=== PATIENT | male | born 2000 | race American Indian/Alaskan Native ===

== ENCOUNTER 2025-01-06 09:00 | Emergency (ER) | payer MEDICAID, OTHER ==
[~2025-01-06] VITALS: Ht 177.8 cm; Wt 91.6 kg
--- NOTE | 2025-01-06 10:56 | ED.PDOC ---
HPI (NEURO) HPI Comments 24y M who presents to the ED for chief complaint of dizziness. Pt states he has been having dizziness since earlier this AM. Pt states he has noticed generalized body pain which also started today but otherwise denies any associated symptoms. Pt states he otherwise has history of seizure disorder and states he has been out of his seizure medications for the past 4 days but states he was otherwise complaint with his medications prior to running out of his medications. Pt denies any recent seizure like activity and states last seizure was many months ago. Pt otherwise is alert and oriented x 4 and able to answer all questions. Pt otherwise denies any other symptoms at this time. = Chief Complaint: Dizziness Time Seen by MD: 10:52 Reviewed Notes: Medications, Allergies Information Source: Patient Mode of Arrival: Ambulatory Brought in by: self Severity: Moderate Dizziness/Weakness Severity: Unable to do activities Headache Severity: None Timing: Hours Duration: Since onset Prehospital treatment: None Onset: At rest Circumstances: Spontaneous Symptoms: Other (dizziness) History of: Seizure Disorder Modifying factors: Nothing Associated Signs and Symptoms: Other (dizziness) Past Medical History PAST MEDICAL HISTORY: Seizures Surgical History: Denies all surgeries Family History Family History: Family hx of DM Social History Smoker: Non-Smoker Alcohol: Occasionally Drugs: Denies Drug Use Lives In: Home Constitutional: denies: chills, diaphoresis, fatigue, fever, malaise, sweats, weakness, others EENTM: denies: blurred vision, double vision, ear bleeding, ear discharge, ear drainage, ear pain, ear ringing, eye pain, eye redness, hearing loss, mouth pain, mouth swelling, nasal discharge, nose bleeding, nose congestion, nose pain, photophobia, tearing, throat pain, throat swelling, voice changes, others Respiratory: denies: cough, hemoptysis, orthopnea, SOB at rest, shortness of breath, SOB with excertion, stridor, wheezing, others Cardiovascular: denies: chest pain, dizzy spells, diaphoresis, Dyspnea on exertion, edema, irregular heart beat, left arm pain, lightheadedness, palpitations, PND, syncope, others Gastrointestinal: denies: abdomen distended, abdominal pain, blood streaked bowels, constipated, diarrhea, dysphagia, difficulty swallowing, hematemesis, melena, nausea, poor appetite, poor fluid intake, rectal bleeding, rectal pain, vomiting, others Genitourinary: denies: burning, dysuria, flank pain, frequency, hematuria, incontinence, penile discharge, penile sore, pain, testicle pain, testicle swelling, urgency, others Neurological: reports: dizziness; denies: fainting, headache, left sided numbness, left sided weakness, numbness, paresthesia, pre-existing deficit, right sided numbness, right sided weakness, seizure, speech problems, tingling, tremors, weakness, others Musculoskeletal: denies: back pain, gout, joint pain, joint swelling, muscle pain, muscle stiffness, neck pain, others Integumetry: denies: bruises, change in color, change in hair/nails, dryness, laceration, lesions, lumps, rash, wounds, others Allergic/Immunocompromised: denies: Difficulty Healing, Frequent Infections, Hives, Itching, others Hematologic/Lymphatic: denies: anemia, blood clots, easy bleeding, easy bruising, swollen glands, others Endocrine: denies: excessive hunger, excessive sweating, excessive thirst, excessive urination, flushing, intolerance to cold, intolerance to heat, unexplained weight gain, unexplained weight loss, others Psychiatric: denies: anxiety, bipolar disorder, depression, hopeless, panic disorder, schizophrenia, sleepless, suicidal, others All Other Systems: Reviewed and Negative Physical Exam General Appearance: Mild Distress HEENT: Normal ENT Inspection, Pharynx Normal, TMs Normal Neck: Full Range of Motion, Non-Tender, Normal, Normal Inspection Respiratory: Chest Non-Tender, Lungs Clear, No Accessory Muscle Use, No Respiratory Distress, Normal Breath Sounds Cardiovascular: No Edema, No JVD, No Murmur, No Gallop, Normal Peripheral Pulses, Regular Rate/Rhythm Breast Exam: Deferred Gastrointestinal: No Organomegaly, Non Tender, No Pulsatile Mass, Normal Bowel Sounds, Soft Genitalia: Deferred Pelvic: Deferred Rectal: Deferred Extremities: No calf tenderness, Normal capillary refill, Normal inspection, Normal range of motion, Non-tender, No pedal edema Musculoskeletal : Apperance: Normal Neurologic: Alert, supervisor purification II-XII nml as Tested, No Motor Deficits, Normal Affect, Normal Mood, No Sensory Deficits Cerebellar Function: Normal Reflexes: Normal Skin: Dry, Normal Color, Warm Lymphatic: No Adenopathy EKG EKG : Pulse Rate (adult): 62 [place]: RAD Cardiac Rhythm: NSR Block: None Hypertrophy: None ST: Normal Was a procedure done? Was a procedure done?: No Differential Diagnosis (SZ) Seizure: Psychogenic Seizure, Anticonvulsant Withdrawl, Closed Head Injury, Hypoxemia, Idiopathic, Encephalopathy General Weakness: Dehydration, Electrolyte imbalance X-Ray, Labs, Meds, VS Vital Signs Date Time Temp Pulse Resp B/P (MAP) Pulse Ox O2 Delivery O2 Flow Rate FiO2 01/06/25 11:06 98.9 58 16 144/96 (112) 99 98.9 01/06/25 11:01 144/96 01/06/25 10:56 62 01/06/25 09:46 98.7 70 18 154/107 (123) 98 98.7 01/06/25 09:44 62 Lab Test 01/06/25 10:55 01/06/25 10:41 Range/Units Urine Color Colorless Yellow Urine Clarity Clear Clear Urine pH 6.5 5.0-9.0 Urine Specific [place] 1.003 1.001-1.035 Urine Protein Negative Negative Urine Ketones Negative Negative Urine Blood Negative Negative /uL Urine Nitrite Negative Negative Urine Bilirubin Negative Negative Urine Urobilinogen Normal Negative mg/dL Urine Leukocyte Esterase Negative Negative /uL Urine RBC None seen 0 - 3 /hpf Urine Microscopic WBC < 1 0-3 /HPF Urine Squamous Epithelial Cells None seen <5 /hpf Urine Bacteria Few H None Seen /hpf Urine Glucose Normal Normal mg/dL White Blood Count 5.0 4.4-10.8 10^3/uL Red Blood Count 5.31 4.5-5.90 10^6/uL Hemoglobin 16.6 13.5-17.5 g/dL Hematocrit 47.9 41.0-53.0 % Mean Corpuscular Volume 90.1 80.0-100.0 fL Mean Corpuscular Hemoglobin 31.2 28.0-32.0 pg Mean Corpuscular Hemoglobin Concent 34.6 32.0-36.0 g/dL Red Cell Distribution Width 13.8 11.8-14.3 % Platelet Count 188 140-450 10^3/uL Mean Platelet Volume 6.6 L 6.9-10.8 fL Neutrophils (%) (Auto) 74.2 37.0-80.0 % Lymphocytes (%) (Auto) 19.9 10.0-50.0 % Monocytes (%) (Auto) 5.3 0.0-12.0 % Eosinophils (%) (Auto) 0.4 0.0-7.0 % Basophils (%) (Auto) 0.2 0.0-2.0 % Neutrophils # (Auto) 3.7 1.6-8.6 10 ^3/uL Lymphocytes # (Auto) 1.0 0.4-5.4 10 ^3/uL Monocytes # (Auto) 0.3 0-1.3 10 ^3/uL Eosinophils # (Auto) 0 0-0.8 10 ^3/uL Basophils # (Auto) 0 0-0.2 10 ^3/uL Nucleated Red Blood Cells 0.0 % Sodium Level 142 136-145 mmol/L Potassium Level 4.3 3.5-5.1 mmol/L Chloride Level 107 98-107 mmol/L Carbon Dioxide Level 28 20-31 mmol/L Anion Gap 7 5-15 Blood Urea Nitrogen 7 L 9-23 mg/dL Creatinine 1.35 H 0.700-1.30 mg/dL Glomerular Filtration Rate Calc 74 >90 mL/min BUN/Creatinine Ratio 5.2 L 10.0-20.0 Serum Glucose 87 74-106 mg/dL Calcium Level 9.8 8.7-10.4 mg/dL Current Medications Medications (Trade) Dose Ordered Sig/Alek Route Start Time Stop Time Status Last Admin Meclizine HCl (Antivert Tablet) 25 mg ONCE ONCE PO 01/06/25 10:45 01/06/25 10:46 DC 01/06/25 11:05 The urine test is negative The patient's chemistry panel is showing a creatinine of 1.35 The rest of the chemistry panel is within normal limits The patient's CBC is within normal limits The patient was given meclizine 25 mg p.o. The CAT scan of the head shows: No sign of any abnormalities The patient will be discharged The patient also states that he ran out of his Keppra We did refill the patient's Keybrokerra Images Reviewed?: Images reviewed and evaluated by me Time of 1ST Reevaluation: 11:30 Reevaluation 1ST: Unchanged Patient Education/Counseling: Diagnosis, Treatment, Prognosis, Need For Follow Up Family Education/Counseling: No Family Present Departure 1 Departure Time of Disposition: 11:46 Impression: Primary Impression: Vertigo Disposition: 01 HOME / SELF CARE / HOMELESS Condition: Fair Discharged With: Self Critical Care Note Critical Care Time?: No Stability Stability form required: No Heart Score Heart Score: Heart Score Response (Comments) Value History N/A 0 EKG N/A 0 Age N/A 0 Risk Factors N/A 0 Troponin N/A 0 Total 0 I personally scribed for PRIYA SADLER MD ([email or web address]) on 01/06/25 at 10:56. Electronically submitted by Simona Purdy ([email or web address]). PRIYA SADLER MD Jan 06, 2025 10:56
[2025-01-06 11:00] LABS: Chloride 107 mmol/L (98-107); Hematocrit 47.9 % (41.0-53.0); Hemoglobin 16.6 g/dL (13.5-17.5); Mean Corpuscular Hemoglobin 31.2 pg (28.0-32.0); Mean Corpuscular Volume 90.1 fL (80.0-100.0); Nucleated Red Blood Cells % 0.0 %; Potassium 4.3 mmol/L (3.5-5.1); Sodium 142 mmol/L (136-145)
[2025-01-06 11:01] LABS: Anion Gap 7 (5-15); Calcium 9.8 mg/dL (8.7-10.4); Carbon Dioxide 28 mmol/L (20-31)
[2025-01-06] MEDS: MECLIZINE HCL 25 MG TAB PO ONE (11:05)
[2025-01-06 11:06] LABS: BUN/Creatinine Ratio 5.2 (10.0-20.0); Glucose 87 mg/dL (74-106)
--- NOTE | 2025-01-06 11:11 | DVH ---
EXAM: CT HEAD WITHOUT CONTRAST INDICATION: dizziness TECHNIQUE: CT of the head without intravenous contrast. Radiation Dose : 1. Head: CT Dose: CTDI volume is 41 mGy. Dose-length product is 856 mGy*cm The dose indicators for CT are the volume Computed Tomography (CT) Dose Index (CTDIvol) and the Dose Length Product (DLP), and are measured in units of mGy and mGy-cm, respectively. These indicators are not patient dose, but values generated from the CT scanner acquisition factors. The report includes radiation exposure data for exposures received during this examination. COMPARISON: None FINDINGS: There is no evidence of acute intracranial hemorrhage, extra-axial collection, mass effect, midline s hift, herniation or hydrocephalus. The ventricles, sulci and cisterns are age appropriate. The cm-white differentiation is intact. The visualized paranasal sinuses and mastoid air cells are clear. The surrounding soft tissues and osseous structures are unremarkable. IMPRESSION: No acute intracranial abnormality. Radiation optimization: All CT scans at this facility use at least one of these dose optimization kiesha hniques: automated exposure control mA and/or kV adjustment per patient size (includes targeted exam s where dose is matched to clinical indication) or iterative reconstruction.
[2025-01-06 11:15] LABS: Blood Urea Nitrogen 7 mg/dL (9-23)
[2025-01-06 11:20] LABS: Urine Protein, UAD Negative (Negative)
[2025-01-06] MEDS ORDERED: KEP500T PO (11:43)
[2025-01-06] MEDS ORDERED: MECL12.586 PO (11:43)
[2025-01-06 11:59] VITALS: BP 123/92; PULSE 62; RESP 18; TEMP 98.2; O2SAT 99
--- NOTE | 2025-01-06 19:26 | ECG ---
[facility] Test Date: 2025-01-06 Test Time: 09:44:51 Pat Name: TESSY MELISSA Department: ER Room: Gender: M [employer]: : 2000 Requested By: EMERGENCY EMERGENCY Order Number: [id number] Reading MD: Archie Villanueva Measurements Intervals [place] Rate: 62 P: 84 OK: 132 QRS: 98 QRSD: 91 T: 53 QT: 411 QTc: 418 Interpretive Statements Sinus rhythm Borderline right axis deviation ST elev, probable normal early repol pattern Electronically Signed On 01-08-2025 10:22:11 PDT by Archie Villanueva Please click the below link to view image of tracing.
== END 2025-01-06 12:02 | disposition home or self-care (01) ==
LOC: ER 09:00
DX: R42 Dizziness and giddiness (principal)
CPT/HCPCS: 36415; 70450; 80048; 81001; 82947; 85025; 93005; 99284; J8597; 82962

== ENCOUNTER 2025-02-25 09:15 | Emergency (ER) | payer MEDICAID, OTHER ==
[~2025-02-25] VITALS: Ht 175.3 cm; Wt 82.0 kg
[~2025-02-25 09:15] MED LIST: KEP500T PO; MECL12.586 PO
[2025-02-25] MEDS ORDERED: AMOX875T3 PO (09:42)
[2025-02-25] MEDS ORDERED: PRED20TA2 PO (09:42)
--- NOTE | 2025-02-25 09:43 | ED.PDOC ---
Eye-HPI HPI Comments A 24 YEAR OLD MALE PRESENTS TO THE ED WITH COMPLAINT OF RIGHT EAR PAIN. PATIENT STATES HE HAS BEEN EXPERIENCING RIGHT EAR PAIN THAT STARTED YESTERDAY. PATIENT DENIES FEVER, CHILLS, SHORTNESS OF BREATH, CHEST PAIN, ABDOMINAL PAIN, NAUSEA, VOMITING, HEADACHE, OR OTHER COMPLAINTS. NO OTHER SYMPTOMS OR MODIFYING FACTORS AT THIS TIME. PATIENT IS ALERT, ORIENTED X 4, AND HAS STEADY GAIT. Chief Complaint: Earache Time Seen by MD: 09:21 Reviewed Notes: Nurses Notes, Medications, Allergies Allergies: Coded Allergies: NO KNOWN ALLERGIES (Unverified , 01/06/25) Home Meds Active Scripts Prednisone (Prednisone) 20 Mg Tab, 60 MG PO DAILY, #15 TAB Prov:DEVONTE BARROS 02/25/25 Amoxicillin Trihydrate (Amoxicillin) 875 Mg Tab, 1 TAB PO BID, #20 TAB Prov:DEVONTE BARROS 02/25/25 Levetiracetam (KEPPRA TABLET) 500 Mg Tb, 500 MG PO BID for 30 Days, #60 TAB Prov:PRIYA SADLER MD 01/06/25 Meclizine Hcl (Meclizine Hcl) 12.5 Mg Tab, 1 TAB PO TID, #30 TAB Prov:PRIYA SADLER MD 01/06/25 Information Source: Patient Mode of Arrival: Ambulatory Timing: Days Duration: Since onset Prehospital treatment: None Quality: Pain, Red Lids: Normal Conjunctiva: Normal Cornea: Normal EOM: Normal Fundus: Normal Slit lamp exam: Normal Mouth: Normal ENT Ear Exam: Normal, Red, Bulging, Dull, Normal Nose: Normal Sinuses: Normal Oropharynx: Normal Onset: Spontaneous Throat Exposed to: None History of: None Last Tetanus: Unknown Modifying factors: Nothing Associated signs and symptoms: Ear Pain Past Medical History PAST MEDICAL HISTORY: Seizures Surgical History: Denies all surgeries Family History Family History: Reviewed,noncontributory to illness, Family hx of DM Social History Smoker: Non-Smoker Alcohol: Occasionally Drugs: Denies Drug Use Lives In: Home Constitutional: denies: chills, diaphoresis, fatigue, fever, malaise, sweats, weakness, others EENTM: reports: ear pain (RIGHT EAR PAIN), ear ringing; denies: blurred vision, double vision, ear bleeding, ear discharge, ear drainage, eye pain, eye redness, hearing loss, mouth pain, mouth swelling, nasal discharge, nose bleeding, nose congestion, nose pain, photophobia, tearing, throat pain, throat swelling, voice changes, others Respiratory: denies: cough, hemoptysis, orthopnea, SOB at rest, shortness of breath, SOB with excertion, stridor, wheezing, others Cardiovascular: denies: chest pain, dizzy spells, diaphoresis, Dyspnea on exertion, edema, irregular heart beat, left arm pain, lightheadedness, palpitations, PND, syncope, others Gastrointestinal: denies: abdomen distended, abdominal pain, blood streaked bowels, constipated, diarrhea, dysphagia, difficulty swallowing, hematemesis, melena, nausea, poor appetite, poor fluid intake, rectal bleeding, rectal pain, vomiting, others Genitourinary: denies: burning, dysuria, flank pain, frequency, hematuria, incontinence, penile discharge, penile sore, pain, testicle pain, testicle swelling, urgency, others Neurological: denies: dizziness, fainting, headache, left sided numbness, left sided weakness, numbness, paresthesia, pre-existing deficit, right sided numbness, right sided weakness, seizure, speech problems, tingling, tremors, weakness, others Musculoskeletal: denies: back pain, gout, joint pain, joint swelling, muscle pain, muscle stiffness, neck pain, others Integumetry: denies: bruises, change in color, change in hair/nails, dryness, laceration, lesions, lumps, rash, wounds, others Allergic/Immunocompromised: denies: Difficulty Healing, Frequent Infections, Hives, Itching, others Hematologic/Lymphatic: denies: anemia, blood clots, easy bleeding, easy bruising, swollen glands, others Endocrine: denies: excessive hunger, excessive sweating, excessive thirst, excessive urination, flushing, intolerance to cold, intolerance to heat, unexplained weight gain, unexplained weight loss, others Psychiatric: denies: anxiety, bipolar disorder, depression, hopeless, panic disorder, schizophrenia, sleepless, suicidal, others All Other Systems: Reviewed and Negative Physical Exam General Appearance: No Apparent Distress, Normal HEENT: PERRL/EOMI, Pharynx Normal, TM Abnormal (R) (ERYTHEMA AND DULL WITH EFFUSION OF RIGHT TM, NO BLEEDING AND BLOOD CLOTS. ) Neck: Full Range of Motion, Non-Tender, Normal, Normal Inspection Respiratory: Chest Non-Tender, Lungs Clear, No Accessory Muscle Use, No Respiratory Distress, Normal Breath Sounds Cardiovascular: No Edema, No JVD, No Murmur, No Gallop, Normal Peripheral Pulses, Regular Rate/Rhythm Breast Exam: Deferred Gastrointestinal: No Organomegaly, Non Tender, No Pulsatile Mass, Normal Bowel Sounds, Soft Genitalia: Deferred Pelvic: Deferred Rectal: Deferred Extremities: No calf tenderness, Normal capillary refill, Normal inspection, Normal range of motion, Non-tender, No pedal edema Musculoskeletal : Apperance: Normal Neurologic: Alert, vacuum system tester II-XII nml as Tested, No Motor Deficits, Normal Affect, Normal Mood, No Sensory Deficits Cerebellar Function: Normal Reflexes: Normal Skin: Dry, Normal Color, Warm Peripheral Pulses: 2+ carotid (R), 2+ carotid (L) Lymphatic: No Adenopathy Was a procedure done? Was a procedure done?: No EENT DIFF Eye: N/A Ear: Cerumen Impaction, Otitis Externa, Otitis Media, Dental, Pharyngitis, Sinusitis Nose: N/A Mouth: N/A Sore Throat: N/A X-Ray, Labs, Meds, VS Vital Signs Date Time Temp Pulse Resp B/P (MAP) Pulse Ox O2 Delivery O2 Flow Rate FiO2 02/25/25 09:48 74 14 97 Room Air 02/25/25 09:48 97.8 74 14 136/77 (96) 97 97.8 02/25/25 09:17 97.8 74 14 136/77 97 97.8 X-Ray, Labs, Meds, VS Comment EXTERNAL MEDICAL RECORDS REVIEWED: [NONE] INDEPENDENT HISTORIANS: [NONE] SOCIAL DETERMINANTS OF HEALTH: [NONE] LABS ORDERED: NONE REVIEWED AND INTERPRETED RESULTS: NONE IMAGING ORDERED: NONE TREATMENTS ORDERED: NONE PROCEDURES PERFORMED: NONE CRITICAL CARE TIME: NONE I HAVE DISCUSSED THE PATIENT WITH THE ATTENDING PHYSICIAN CYNTHIA AND HE AGREES WITH THE PATIENT'S PLAN OF CARE AND DISPOSITION. BASED ON HISTORY OF PRESENT ILLNESS, AND PHYSICAL EXAM, PATIENT WILL BE DISCHARGED HOME. DISCUSSED PLAN FOR DISCHARGE HOME WITH RX [AMOXICILLIN AND PREDNISONE]. MEDICATION WARNINGS GIVEN. SHARED DECISION MAKING: PATIENT INSTRUCTED TO FOLLOW UP WITH PRIMARY CARE PROVIDER IN 1-2 DAYS FOR RE-EVALUATION OF SYMPTOMS. PATIENT VERBALIZES UNDERSTANDING TO RETURN TO ED FOR NEW OR WORSENING SYMPTOMS OR IF FOLLOW UP WITH PCP CANNOT BE OBTAINED. PATIENT FEELS COMFORTABLE GOING HOME AT THIS TIME. ALL QUESTIONS ADDRESSED AT TIME OF DISCHARGE. Time of 1ST Reevaluation: 10:00 Reevaluation 1ST: Improved Patient Education/Counseling: Diagnosis, Treatment, Need For Follow Up Family Education/Counseling: Diagnosis, Treatment, Need For Follow Up Medical Screening: No EMC Exist At This Time SEPSIS Sepsis Screen Date sepsis recognized/suspect: Feb 25, 2025 Time Sepsis recognized/suspect: 918 Recent Procedure: No On Antibiotic Therapy: No Respiratory Rate >20: No Heart Rate >90: No Temp<36 C (96.8 F) or >38.3 C: No SBP <90 or MAP <65 mmHG: No New Acute Mental Status Change: No Is the patient on CPAP, BIPAP,: No Vital Signs Date Time Temp Pulse Resp B/P (MAP) Pulse Ox O2 Delivery O2 Flow Rate FiO2 02/25/25 09:48 74 14 97 Room Air 02/25/25 09:48 97.8 74 14 136/77 (96) 97 97.8 02/25/25 09:17 97.8 74 14 136/77 97 97.8 Departure 1 Departure Time of Disposition: 10:00 Impression: Primary Impression: Otitis media of right ear Qualified Codes: H65.01 - Acute serous otitis media, right ear Disposition: HOME / SELF CARE / HOMELESS Condition: Stable Additional Instructions: FOLLOW-UP WITH PCP IN 1 TO 2 DAYS. TAKE MEDICATIONS PRESCRIBED. RETURN TO ED FOR ANY NEW OR WORSENING SYMPTOMS. e-Prescriptions Prednisone (Prednisone) 20 Mg Tab 60 MG PO DAILY, #15 TAB Prov: DEVONTE BARROS 02/25/25 Amoxicillin Trihydrate (Amoxicillin) 875 Mg Tab 1 TAB PO BID, #20 TAB Prov: DEVONTE BARROS 02/25/25 Discharged With: Self Critical Care Note Critical Care Time?: No Stability Stability form required: No I personally scribed for DEVONTE BARROS ([email or web address]) on 02/25/25 at 09:43. Electronically submitted by Jeff Leija ([email or web address]). DEVONTE BARROS Feb 25, 2025 09:43
[2025-02-25 09:48] VITALS: BP 136/77; PULSE 74; RESP 14; TEMP 97.8; O2SAT 97
== END 2025-02-25 09:50 | disposition home or self-care (01) ==
LOC: ER 09:15
DX: H65.01 Acute serous otitis media, right ear (principal); Z79.899 Other long term (current) drug therapy

== ENCOUNTER 2025-03-10 16:15 | Emergency (ER) | payer SELFPAY ==
[~2025-03-10] VITALS: Ht 175.3 cm; Wt 93.6 kg
[~2025-03-10 16:15] MED LIST changes: +AMOX875T3 PO; +PRED20TA2 PO
[2025-03-10] MEDS ORDERED: [UNRECOGNIZED DRUG - CODE] PO (18:57)
[2025-03-10] MEDS ORDERED: ONDANSETRON ODT 4 MG TAB PO ONE (19:00)
[2025-03-10] MEDS: MECLIZINE HCL 25 MG TAB PO ONE (19:02)
--- NOTE | 2025-03-10 19:04 | ED.PDOC ---
GI ASSESSMENT HPI Comments 24 year old male presents to ER with complaints of nausea x 1 day. Patient states he woke up at 5 a.m. this morning with nausea and feeling "light headed". Denies any pain and denies use of medications for current symptoms. Patient presents to ER ambulatory on arrival, alert and oriented x 4, with steady gait, in no distress with vitals stable. Patient also state he needs a refill of his Keppra XR 500 mg that he takes QD for PMH of epilepsy, noting he took his last dose of this medication today. Denies fever, headache, vomiting, numbness/tingling, vision changes, head injury, abdominal pain, known exposure to sick contacts, seizure, changes in urination/bm or any further symptoms/complaints Chief Complaint: Nausea/Vomiting Time Seen by MD: 18:13 Primary Care Provider: UNKNOWN Allergies: Coded Allergies: NO KNOWN ALLERGIES (Unverified , 01/06/25) Home Meds Active Scripts Levetiracetam (Keppra Xr) 500 Mg Tab, 500 MG PO DAILY, #10 TAB 0 Refills Prov:ARNOLD NAVARRO 03/10/25 Prednisone (Prednisone) 20 Mg Tab, 60 MG PO DAILY, #15 TAB Prov:DEVONTE BARROS 02/25/25 Amoxicillin Trihydrate (Amoxicillin) 875 Mg Tab, 1 TAB PO BID, #20 TAB Prov:DEVONTE BARROS 02/25/25 Levetiracetam (KEPPRA TABLET) 500 Mg Tb, 500 MG PO BID for 30 Days, #60 TAB Prov:PRIYA SADLER MD 01/06/25 Meclizine Hcl (Meclizine Hcl) 12.5 Mg Tab, 1 TAB PO TID, #30 TAB Prov:PRIYA SADLER MD 01/06/25 Mode of Arrival: Ambulatory Past Medical History PAST MEDICAL HISTORY: Seizures (epilepsy) Surgical History: Denies all surgeries Family History Family History: Family hx of DM Social History Smoker: Non-Smoker Alcohol: Occasionally Drugs: Denies Drug Use Lives In: Home Constitutional: denies: chills, diaphoresis, fatigue, fever, malaise, sweats, weakness, others EENTM: denies: blurred vision, double vision, ear bleeding, ear discharge, ear drainage, ear pain, ear ringing, eye pain, eye redness, hearing loss, mouth pain, mouth swelling, nasal discharge, nose bleeding, nose congestion, nose pain, photophobia, tearing, throat pain, throat swelling, voice changes, others Respiratory: denies: cough, hemoptysis, orthopnea, SOB at rest, shortness of breath, SOB with excertion, stridor, wheezing, others Cardiovascular: reports: lightheadedness Gastrointestinal: reports: others (As stated in HPI) Genitourinary: denies: burning, dysuria, flank pain, frequency, hematuria, incontinence, penile discharge, penile sore, pain, testicle pain, testicle swelling, urgency, others Neurological: denies: dizziness, fainting, headache, left sided numbness, left sided weakness, numbness, paresthesia, pre-existing deficit, right sided numbness, right sided weakness, seizure, speech problems, tingling, tremors, weakness, others Musculoskeletal: denies: back pain, gout, joint pain, joint swelling, muscle pain, muscle stiffness, neck pain, others Integumetry: denies: bruises, change in color, change in hair/nails, dryness, laceration, lesions, lumps, rash, wounds, others Allergic/Immunocompromised: denies: Difficulty Healing, Frequent Infections, Hives, Itching, others Hematologic/Lymphatic: denies: anemia, blood clots, easy bleeding, easy bruising, swollen glands, others Endocrine: denies: excessive hunger, excessive sweating, excessive thirst, excessive urination, flushing, intolerance to cold, intolerance to heat, unexplained weight gain, unexplained weight loss, others Psychiatric: denies: anxiety, bipolar disorder, depression, hopeless, panic di sorder, schizophrenia, sleepless, suicidal, others Physical Exam General Appearance: No Apparent Distress, Obese HEENT: Normal ENT Inspection, PERRL/EOMI, Pharynx Normal, TMs Normal Neck: Full Range of Motion, Non-Tender, Normal Respiratory: Chest Non-Tender, Lungs Clear, No Accessory Muscle Use, No Respiratory Distress, Normal Breath Sounds Cardiovascular: No Murmur, No Gallop, Regular Rate/Rhythm Breast Exam: Deferred Gastrointestinal: Non Tender, No Pulsatile Mass, Soft Genitalia: Deferred Pelvic: Deferred Rectal: Deferred Extremities: Normal capillary refill, Normal range of motion Neurologic: Alert, endoscopy tech II-XII nml as Tested, No Motor Deficits, Normal Affect, Normal Mood, No Sensory Deficits Cerebellar Function: Normal Reflexes: Normal Skin: Dry, Normal Color, Warm Peripheral Pulses: 2+ Radial (R), 2+ Radial (L), 2+ Brachial (R), 2+ Brachial (L) Lymphatic: No Adenopathy Was a procedure done? Was a procedure done?: No Sedation Sedation?: No GI differential Dx Differential Diagnosis: GI hemorrhage, Ischemic Bowel, Trauma intraabdominal X-Ray, Labs, Meds, VS Vital Signs Date Time Temp Pulse Resp B/P (MAP) Pulse Ox O2 Delivery O2 Flow Rate FiO2 03/10/25 16:17 98.9 85 16 134/74 95 98.9 Lab Test 03/10/25 19:05 03/10/25 18:52 03/10/25 18:50 Range/Units White Blood Count 7.2 4.4-10.8 10^3/uL Red Blood Count 5.62 4.5-5.90 10^6/uL Hemoglobin 17.6 H 13.5-17.5 g/dL Hematocrit 51.1 41.0-53.0 % Mean Corpuscular Volume 90.9 80.0-100.0 fL Mean Corpuscular Hemoglobin 31.4 28.0-32.0 pg Mean Corpuscular Hemoglobin Concent 34.5 32.0-36.0 g/dL Red Cell Distribution Width 13.3 11.8-14.3 % Platelet Count 178 140-450 10^3/uL Mean Platelet Volume 6.9 6.9-10.8 fL Neutrophils (%) (Auto) 71.8 37.0-80.0 % Lymphocytes (%) (Auto) 21.2 10.0-50.0 % Monocytes (%) (Auto) 6.0 0.0-12.0 % Eosinophils (%) (Auto) 0.9 0.0-7.0 % Basophils (%) (Auto) 0.1 0.0-2.0 % Neutrophils # (Auto) 5.2 1.6-8.6 10 ^3/uL Lymphocytes # (Auto) 1.5 0.4-5.4 10 ^3/uL Monocytes # (Auto) 0.4 0-1.3 10 ^3/uL Eosinophils # (Auto) 0.1 0-0.8 10 ^3/uL Basophils # (Auto) 0 0-0.2 10 ^3/uL Nucleated Red Blood Cells 1.4 % Sodium Level 144 136-145 mmol/L Potassium Level 4.4 3.5-5.1 mmol/L Chloride Level 104 98-107 mmol/L Carbon Dioxide Level 31 20-31 mmol/L Anion Gap 9 5-15 Blood Urea Nitrogen 10 9-23 mg/dL Creatinine 1.36 H 0.700-1.30 mg/dL Glomerular Filtration Rate Calc 74 >90 mL/min BUN/Creatinine Ratio 7.4 L 10.0-20.0 Serum Glucose 92 74-106 mg/dL Calcium Level 9.3 8.7-10.4 mg/dL Troponin I High Sensitivity < 3 L </=54 ng/L Urine Color Colorless Yellow Urine Clarity Clear Clear Urine pH 6.5 5.0-9.0 Urine Specific [place] 1.007 1.001-1.035 Urine Protein Negative Negative Urine Ketones Negative Negative Urine Blood Negative Negative /uL Urine Nitrite Negative Negative Urine Bilirubin Negative Negative Urine Urobilinogen Normal Negative mg/dL Urine Leukocyte Esterase Negative Negative /uL Urine RBC <1 0 - 3 /hpf Urine Microscopic WBC 0-3 /HPF Urine Squamous Epithelial Cells None seen <5 /hpf Urine Bacteria None seen None Seen /hpf Urine Glucose Normal Normal mg/dL Influenza Type A Antigen Negative Negative Influenza Type B Antigen Negative Negative SARS-CoV-2 Antigen (Rapid) Negative NEGATIVE Current Medications Medications (Trade) Dose Ordered Sig/Alek Route Start Time Stop Time Status Last Admin Sodium Chloride 1,000 ml @ 1,000 mls/hr Q1H ONCE IV 03/10/25 19:00 03/10/25 19:59 DC 03/10/25 19:18 Meclizine HCl (Antivert Tablet) 50 mg ONCE ONCE PO 03/10/25 19:00 03/10/25 19:01 DC 03/10/25 19:02 CBC reviewed without any significant abnormalities BMP reviewed-creatinine 1.36, GFR 74 Urinalysis reviewed without any significant abnormalities Troponin reviewed-normal Swab results reviewed-negative Hep-Lock IV ordered NS 1 L IV ordered Meclizine 50 mg p.o. ordered Patient had improvement in symptoms, denied any nausea and light headedness and was in no distress prior to discharge Diet education discussed Advised to follow up with PCP in 1-2 days Patient verbalized understanding and agreeable with current plan of care Advised to return to ER immediately if symptoms worsen Time of 1ST Reevaluation: 19:02 Reevaluation 1ST: N/A Patient Education/Counseling: Diagnosis, Treatment, Prognosis, Need For Follow Up Family Education/Counseling: No Family Present SEPSIS Sepsis Screen Date sepsis recognized/suspect: Mar 10, 2025 Time Sepsis recognized/suspect: 1620 Recent Procedure: No On Antibiotic Therapy: No Respiratory Rate >20: No Heart Rate >90: No Temp<36 C (96.8 F) or >38.3 C: No SBP <90 or MAP <65 mmHG: No New Acute Mental Status Change: No Is the patient on CPAP, BIPAP,: No Physician Orders Heplock Iv (03/10/25 ) Vital Signs Date Time Temp Pulse Resp B/P (MAP) Pulse Ox O2 Delivery O2 Flow Rate FiO2 03/10/25 16:17 98.9 85 16 134/74 95 98.9 Laboratory Tests Test 03/10/25 19:05 White Blood Count 7.2 10^3/uL (4.4-10.8) Medications Medications Dose Ordered Sig/Alek Route Start Time Stop Time Status Last Admin Dose Admin Meclizine HCl 50 mg ONCE ONCE PO 03/10/25 19:00 03/10/25 19:01 DC 03/10/25 19:02 Sodium Chloride 1,000 ml @ 1,000 mls/hr Q1H ONCE IV 03/10/25 19:00 03/10/25 19:59 DC 03/10/25 19:18 Departure 1 Departure Time of Disposition: 18:54 Impression: Primary Impression: Viral gastritis Additional Impressions: History of epilepsy Dehydration Disposition: 01 HOME / SELF CARE / HOMELESS Condition: Stable e-Prescriptions Ondansetron Odt 4MG Tab (ZOFRAN PO) 4 Mg Tb 4 MG PO Q8HPRN, #10 TAB 0 Refills ODT TAB-DISSOLVE IN MOUTH, THEN SWALLOW Prov: ARNOLD NAVARRO 03/10/25 Levetiracetam (Keppra Xr) 500 Mg Tab 500 MG PO DAILY, #10 TAB 0 Refills Prov: ARNOLD NAVARRO 03/10/25 Discharged With: Friend Critical Care Note Critical Care Time?: No Stability Stability form required: No Heart Score Heart Score: Heart Score Response (Comments) Value History N/A 0 EKG N/A 0 Age N/A 0 Risk Factors N/A 0 Troponin N/A 0 Total 0 ARNOLD NAVARRO Mar 10, 2025 19:04
[2025-03-10] MEDS: SODIUM CHLORIDE 0.9% 1,000 ML IV ONE (19:18)
[2025-03-10 19:29] LABS: Hematocrit 51.1 % (41.0-53.0); Hemoglobin 17.6 g/dL (13.5-17.5); Mean Corpuscular Hemoglobin 31.4 pg (28.0-32.0); Mean Corpuscular Volume 90.9 fL (80.0-100.0); Nucleated Red Blood Cells % 1.4 %
[2025-03-10 19:32] LABS: Urine Protein, UAD Negative (Negative)
[2025-03-10 19:35] LABS: Chloride 104 mmol/L (98-107); Potassium 4.4 mmol/L (3.5-5.1); Sodium 144 mmol/L (136-145)
[2025-03-10 19:36] LABS: Anion Gap 9 (5-15); Carbon Dioxide 31 mmol/L (20-31)
[2025-03-10 19:37] LABS: Calcium 9.3 mg/dL (8.7-10.4)
[2025-03-10 19:41] LABS: BUN/Creatinine Ratio 7.4 (10.0-20.0); Blood Urea Nitrogen 10 mg/dL (9-23); Glucose 92 mg/dL (74-106)
[2025-03-10 19:53] LABS: COVID19 ANTIGEN SOFIA FIA NEGATIVE (NEGATIVE)
[2025-03-10] MEDS ORDERED: ZOFR4T PO (20:09)
[2025-03-10 20:40] VITALS: BP 158/101; PULSE 67; RESP 18; TEMP 98.7; O2SAT 100
== END 2025-03-10 21:26 | disposition home or self-care (01) ==
LOC: ER 16:15
DX: A08.4 Viral intestinal infection, unspecified (principal); E86.0 Dehydration; Z79.899 Other long term (current) drug therapy; Z20.822 Contact with and (suspected) exposure to COVID-19
CPT/HCPCS: 36415; 80048; 81001; 84484; 85025; 87426; 87804; 99283; J8597

== ENCOUNTER 2025-03-27 10:58 | Emergency (ER) | payer SELFPAY ==
[~2025-03-27] VITALS: Ht 175.3 cm; Wt 91.6 kg
[~2025-03-27 10:58] MED LIST changes: +ZOFR4T PO; +[UNRECOGNIZED DRUG - CODE] PO
[2025-03-27 11:30] VITALS: PULSE 79; RESP 17; O2SAT 97
--- NOTE | 2025-03-27 11:33 | ED.PDOC ---
History of Present Illness HPI Comments 24-year-old male with a history of epilepsy presents here with seizure-like episode. He states he did not seize but felt the aura coming. He states he normally takes Keppra 500 mg b.i.d. but has not been able to take 1 in 2 weeks as he ran out of his medications in his physician in his [place] and he is unable to make the community. States otherwise he has been well. Did not hit his head this morning as he did not seize. Denies any recent cough cold runny nose. Lives with his fiancee. No recent fevers. Chief Complaint: Dizziness Time Seen by MD: 11:10 Primary Care Provider: UNKNOWN Reviewed Notes: Medications, Allergies Allergies: Coded Allergies: NO KNOWN ALLERGIES (Unverified , 01/06/25) Home Meds Active Scripts Ondansetron Odt 4MG Tab (ZOFRAN PO) 4 Mg Tb, 4 MG PO Q8HPRN, #10 TAB 0 Refills ODT TAB-DISSOLVE IN MOUTH, THEN SWALLOW Prov:ARNOLD NAVARRO 03/10/25 Levetiracetam (Keppra Xr) 500 Mg Tab, 500 MG PO DAILY, #10 TAB 0 Refills Prov:ARNOLD NAVARRO 03/10/25 Prednisone (Prednisone) 20 Mg Tab, 60 MG PO DAILY, #15 TAB Prov:DEVONTE BARROS 02/25/25 Amoxicillin Trihydrate (Amoxicillin) 875 Mg Tab, 1 TAB PO BID, #20 TAB Prov:DEVONTE ABRROS 02/25/25 Levetiracetam (KEPPRA TABLET) 500 Mg Tb, 500 MG PO BID for 30 Days, #60 TAB Prov:PRIYA SADLER MD 01/06/25 Meclizine Hcl (Meclizine Hcl) 12.5 Mg Tab, 1 TAB PO TID, #30 TAB Prov:PRIYA SADLER MD 01/06/25 Information Source: Patient Mode of Arrival: Ambulatory Severity: Moderate Timing: Hours Duration: Since onset Prehospital treatment: None Medication Refill: Ran out of Medication, For: Other (seizure) Past Medical History PAST MEDICAL HISTORY: Seizures Surgical History: Denies all surgeries Family History Family History: Family hx of DM Social History Smoker: Non-Smoker Alcohol: Occasionally Drugs: Denies Drug Use Lives In: Home Constitutional: reports: fatigue; denies: chills, diaphoresis, fever, malaise, sweats, weakness, others EENTM: reports: ear ringing; denies: blurred vision, double vision, ear bleeding, ear discharge, ear drainage, ear pain, eye pain, eye redness, hearing loss, mouth pain, mouth swelling, nasal discharge, nose bleeding, nose congestion, nose pain, photophobia, tearing, throat pain, throat swelling, voice changes, others Respiratory: denies: cough, hemoptysis, orthopnea, SOB at rest, shortness of breath, SOB with excertion, stridor, wheezing, others Cardiovascular: denies: chest pain, dizzy spells, diaphoresis, Dyspnea on exertion, edema, irregular heart beat, left arm pain, lightheadedness, palpitations, PND, syncope, others Gastrointestinal: denies: abdomen distended, abdominal pain, blood streaked bowels, constipated, diarrhea, dysphagia, difficulty swallowing, hematemesis, melena, nausea, poor appetite, poor fluid intake, rectal bleeding, rectal pain, vomiting, others Genitourinary: denies: burning, dysuria, flank pain, frequency, hematuria, incontinence, penile discharge, penile sore, pain, testicle pain, testicle swelling, urgency, others Neurological: reports: dizziness; denies: fainting, headache, left sided numbness, left sided weakness, numbness, paresthesia, pre-existing deficit, right sided numbness, right sided weakness, seizure, speech problems, tingling, tremors, weakness, others Musculoskeletal: denies: back pain, gout, joint pain, joint swelling, muscle pain, muscle stiffness, neck pain, others Integumetry: denies: bruises, change in color, change in hair/nails, dryness, laceration, lesions, lumps, rash, wounds, others Allergic/Immunocompromised: denies: Difficulty Healing, Frequent Infections, Hives, Itching, others Hematologic/Lymphatic: denies: anemia, blood clots, easy bleeding, easy bruising, swollen glands, others Endocrine: denies: excessive hunger, excessive sweating, excessive thirst, excessive urination, flushing, intolerance to cold, intolerance to heat, unexplained weight gain, unexplained weight loss, others Psychiatric: denies: anxiety, bipolar disorder, depression, hopeless, panic disorder, schizophrenia, sleepless, suicidal, others All Other Systems: Reviewed and Negative Physical Exam General Appearance: No Apparent Distress, Normal HEENT: Normal ENT Inspection, Pharynx Normal, TMs Normal Neck: Full Range of Motion, Non-Tender, Normal, Normal Inspection Respiratory: Chest Non-Tender, Lungs Clear, No Accessory Muscle Use, No Respiratory Distress, Normal Breath Sounds Cardiovascular: No Edema, No JVD, No Murmur, No Gallop, Normal Peripheral Pulses, Regular Rate/Rhythm Breast Exam: Deferred Gastrointestinal: No Organomegaly, Non Tender, No Pulsatile Mass, Normal Bowel Sounds, Soft Genitalia: Deferred Pelvic: Deferred Rectal: Deferred Extremities: No calf tenderness, Normal capillary refill, Normal inspection, Normal range of motion, Non-tender, No pedal edema Musculoskeletal : Apperance: Normal Neurologic: Alert, welfare investigator II-XII nml as Tested, No Motor Deficits, Normal Affect, Normal Mood, No Sensory Deficits Cerebellar Function: Normal Reflexes: Normal Skin: Dry, Normal Color, Warm Lymphatic: No Adenopathy Was a procedure done? Was a procedure done?: No Differential Dx Considerations may include: Electrolyte disturbance, medication noncompliance, seizure, epilepsy, hypovolemia X-Ray, Labs, Meds, VS Vital Signs Date Time Temp Pulse Resp B/P (MAP) Pulse Ox O2 Delivery O2 Flow Rate FiO2 03/27/25 11:40 97 Room Air* 0 21 03/27/25 11:30 79 17 97 Room Air* 0 21 03/27/25 11:28 98.3 79 18 116/88 (97) 97 98.3 03/27/25 11:00 98.4 86 18 145/90 97 98.4 Lab Test 03/27/25 11:47 03/27/25 11:23 Range/Units White Blood Count 4.9 4.4-10.8 10^3/uL Red Blood Count 5.39 4.5-5.90 10^6/uL Hemoglobin 16.6 13.5-17.5 g/dL Hematocrit 48.4 41.0-53.0 % Mean Corpuscular Volume 89.7 80.0-100.0 fL Mean Corpuscular Hemoglobin 30.7 28.0-32.0 pg Mean Corpuscular Hemoglobin Concent 34.2 32.0-36.0 g/dL Red Cell Distribution Width 13.4 11.8-14.3 % Platelet Count 192 140-450 10^3/uL Mean Platelet Volume 6.7 L 6.9-10.8 fL Neutrophils (%) (Auto) 72.4 37.0-80.0 % Lymphocytes (%) (Auto) 20.6 10.0-50.0 % Monocytes (%) (Auto) 5.9 0.0-12.0 % Eosinophils (%) (Auto) 0.9 0.0-7.0 % Basophils (%) (Auto) 0.2 0.0-2.0 % Neutrophils # (Auto) 3.5 1.6-8.6 10 ^3/uL Lymphocytes # (Auto) 1.0 0.4-5.4 10 ^3/uL Monocytes # (Auto) 0.3 0-1.3 10 ^3/uL Eosinophils # (Auto) 0 0-0.8 10 ^3/uL Basophils # (Auto) 0 0-0.2 10 ^3/uL Nucleated Red Blood Cells 0.1 % Sodium Level 144 136-145 mmol/L Potassium Level 3.5 3.5-5.1 mmol/L Chloride Level 108 H 98-107 mmol/L Carbon Dioxide Level 27 20-31 mmol/L Anion Gap 9 5-15 Blood Urea Nitrogen 10 9-23 mg/dL Creatinine 1.26 0.700-1.30 mg/dL Glomerular Filtration Rate Calc 81 >90 mL/min BUN/Creatinine Ratio 7.9 L 10.0-20.0 Serum Glucose 91 74-106 mg/dL Calcium Level 8.8 8.7-10.4 mg/dL POC Glucose 97 70-106 mg/dl Current Medications Medications (Trade) Dose Ordered Sig/Alek Route Start Time Stop Time Status Last Admin Sodium Chloride 1,000 ml @ 1,000 mls/hr Q1H ONCE IV 03/27/25 11:30 03/27/25 12:29 DC 03/27/25 11:46 Levetiracetam 100 ml @ 400 mls/hr ONCE ONCE IV 03/27/25 11:30 03/27/25 11:44 DC 03/27/25 11:46 24-year-old male with a known history of epilepsy presents here with seizure- like aura. He has not taken his medication in 2 weeks as he did not have the medication. CBC BMP has been done in the ER which are unremarkable. I have given him 1 L of normal saline and also Keppra 1000 IV. Patient is clinically feeling well. No longer has a or a. I have given him prescription for Keppra 500 b.i.d. to local pharmacy. Advised him that medication compliance was very important. Advised him to return if his symptoms worsen or persist. Patient agreeable. Patient lives with his fiancee. Time of 1ST Reevaluation: 12:42 Reevaluation 1ST: Unchanged Patient Education/Counseling: Diagnosis, Treatment Family Education/Counseling: No Family Present SEPSIS Sepsis Screen Date sepsis recognized/suspect: Mar 27, 2025 Time Sepsis recognized/suspect: 1103 Recent Procedure: No On Antibiotic Therapy: No Respiratory Rate >20: No Heart Rate >90: No Temp<36 C (96.8 F) or >38.3 C: No SBP <90 or MAP <65 mmHG: No New Acute Mental Status Change: No Is the patient on CPAP, BIPAP,: No Vital Signs Date Time Temp Pulse Resp B/P (MAP) Pulse Ox O2 Delivery O2 Flow Rate FiO2 03/27/25 11:40 97 Room Air* 0 21 03/27/25 11:30 79 17 97 Room Air* 0 21 03/27/25 11:28 98.3 79 18 116/88 (97) 97 98.3 03/27/25 11:00 98.4 86 18 145/90 97 98.4 Laboratory Tests Test 03/27/25 11:47 White Blood Count 4.9 10^3/uL (4.4-10.8) Medications Medications Dose Ordered Sig/Alek Route Start Time Stop Time Status Last Admin Dose Admin Levetiracetam 100 ml @ 400 mls/hr ONCE ONCE IV 03/27/25 11:30 03/27/25 11:44 DC 03/27/25 11:46 Sodium Chloride 1,000 ml @ 1,000 mls/hr Q1H ONCE IV 03/27/25 11:30 03/27/25 12:29 DC 03/27/25 11:46 Departure 1 Departure Time of Disposition: 12:42 Impression: Primary Impression: Seizure disorder Additional Impression: Noncompliance with medication treatment due to underuse of medication Disposition: 01 HOME / SELF CARE / HOMELESS Condition: Good Additional Instructions: Follow up with the primary care physician in 2-3 days. Return to the ER if symptoms worsen or persist. e-Prescriptions Levetiracetam (KEPPRA TABLET) 500 Mg Tb 500 MG PO BID for 30 Days, #60 TAB Prov: LIA JAIMES MD 03/27/25 Discharged With: Self Critical Care Note Critical Care Time?: No Stability Stability form required: No Heart Score Heart Score: Heart Score Response (Comments) Value History N/A 0 EKG N/A 0 Age N/A 0 Risk Factors N/A 0 Troponin N/A 0 Total 0 I personally scribed for LIA JAIMES MD ([email or web address]) on 03/27/25 at 11:33. Electronically submitted by Heidi Thompson ([email or web address]). LIA JAIMES MD Mar 27, 2025 11:33
[2025-03-27] MEDS: levETIRAcetam 1000 mg/100ml 100 ML IV ONE (11:46)
[2025-03-27] MEDS: SODIUM CHLORIDE 0.9% 1,000 ML IV ONE (11:46)
[2025-03-27 12:00] VITALS: BP 119/83; PULSE 73; RESP 18; TEMP 98.3; O2SAT 97
[2025-03-27 12:07] LABS: Hematocrit 48.4 % (41.0-53.0); Hemoglobin 16.6 g/dL (13.5-17.5); Mean Corpuscular Hemoglobin 30.7 pg (28.0-32.0); Mean Corpuscular Volume 89.7 fL (80.0-100.0); Nucleated Red Blood Cells % 0.1 %
[2025-03-27 12:15] LABS: Potassium 3.5 mmol/L (3.5-5.1); Sodium 144 mmol/L (136-145)
[2025-03-27 12:16] LABS: Anion Gap 9 (5-15); Carbon Dioxide 27 mmol/L (20-31); Chloride 108 mmol/L (98-107)
[2025-03-27 12:17] LABS: Calcium 8.8 mg/dL (8.7-10.4)
[2025-03-27 12:21] LABS: Glucose 91 mg/dL (74-106)
[2025-03-27 12:22] LABS: BUN/Creatinine Ratio 7.9 (10.0-20.0); Blood Urea Nitrogen 10 mg/dL (9-23)
[2025-03-27] MEDS ORDERED: KEP500T PO (12:44)
== END 2025-03-27 12:44 | disposition home or self-care (01) ==
LOC: ER 10:58
DX: G40.909 Epilepsy, unspecified, not intractable, without status epilepticus (principal); Z79.899 Other long term (current) drug therapy; Z91.148 Patient's other noncompliance with medication regimen for other reason
CPT/HCPCS: 36415; 80048; 82947; 85025; 96365; 99284; J1953; J7030; 82962; 96361

== ENCOUNTER 2025-06-15 08:12 | Emergency (ER) | payer SELFPAY ==
[~2025-06-15] VITALS: Ht 175.3 cm; Wt 97.9 kg
--- NOTE | 2025-06-15 09:15 | ECG ---
[facility] Test Date: 2025-06-15 Test Time: 08:25:02 Pat Name: TESSY MELISSA Department: ED Room: Gender: M [employer]: CHRISTEL : 2000 Requested By: RAOUL CAMPOS Order Number: [id number] Reading MD: Archie Villanueva Measurements Intervals [place] Rate: 61 P: 89 NC: 135 QRS: 109 QRSD: 89 T: 47 QT: 402 QTc: 405 Interpretive Statements Sinus rhythm Borderline right axis deviation Electronically Signed On 06-17-2025 19:28:10 PST by Archie Villanueva Please click the below link to view image of tracing.
--- NOTE | 2025-06-15 10:09 | ED.PDOC ---
HPI (NEURO) HPI Comments 25 y/o M, with PMHx of seizures presents to the ED for CC of dizziness. Patient states, he has been experiencing symptoms of dizziness x3days. Patient reports, dizziness to worsen in the mornings and with light exertion. Patient comments, on being compliant with all medication. Patient denies any nausea, vomiting, or headaches with aura. No other symptoms or modifying factors are present at this time. Chief Complaint: Dizziness Time Seen by MD: 09:45 Primary Care Provider: UNKNOWN Reviewed Notes: Nurses Notes, Medications, Allergies Information Source: Patient Mode of Arrival: Ambulatory Severity: Moderate Headache Severity: None Timing: Days Duration: Since onset Prehospital treatment: None Onset: With light exertion Circumstances: Spontaneous Symptoms: Vertigo History of: Seizure Disorder Modifying factors: Nothing Associated Signs and Symptoms: None Past Medical History PAST MEDICAL HISTORY: Seizures Surgical History: Denies all surgeries Family History Family History: Family hx of DM Social History Smoker: Non-Smoker Alcohol: Occasionally Drugs: Denies Drug Use Lives In: Home Constitutional: denies: chills, diaphoresis, fatigue, fever, malaise, sweats, weakness, others EENTM: denies: blurred vision, double vision, ear bleeding, ear discharge, ear drainage, ear pain, ear ringing, eye pain, eye redness, hearing loss, mouth pain, mouth swelling, nasal discharge, nose bleeding, nose congestion, nose pain, photophobia, tearing, throat pain, throat swelling, voice changes, others Respiratory: denies: cough, hemoptysis, orthopnea, SOB at rest, shortness of breath, SOB with excertion, stridor, wheezing, others Cardiovascular: denies: chest pain, dizzy spells, diaphoresis, Dyspnea on exertion, edema, irregular heart beat, left arm pain, lightheadedness, palpitations, PND, syncope, others Gastrointestinal: denies: abdomen distended, abdominal pain, blood streaked bowels, constipated, diarrhea, dysphagia, difficulty swallowing, hematemesis, melena, nausea, poor appetite, poor fluid intake, rectal bleeding, rectal pain, vomiting, others Genitourinary: denies: burning, dysuria, flank pain, frequency, hematuria, incontinence, penile discharge, penile sore, pain, testicle pain, testicle swelling, urgency, others Neurological: reports: dizziness; denies: fainting, headache, left sided numbness, left sided weakness, numbness, paresthesia, pre-existing deficit, right sided numbness, right sided weakness, seizure, speech problems, tingling, tremors, weakness, others Musculoskeletal: denies: back pain, gout, joint pain, joint swelling, muscle pain, muscle stiffness, neck pain, others Integumetry: denies: bruises, change in color, change in hair/nails, dryness, laceration, lesions, lumps, rash, wounds, others Allergic/Immunocompromised: denies: Difficulty Healing, Frequent Infections, Hives, Itching, others Hematologic/Lymphatic: denies: anemia, blood clots, easy bleeding, easy bruising, swollen glands, others Endocrine: denies: excessive hunger, excessive sweating, excessive thirst, excessive urination, flushing, intolerance to cold, intolerance to heat, unexplained weight gain, unexplained weight loss, others Psychiatric: denies: anxiety, bipolar disorder, depression, hopeless, panic disorder, schizophrenia, sleepless, suicidal, others All Other Systems: Reviewed and Negative Physical Exam General Appearance: No Apparent Distress, Normal HEENT: Normal ENT Inspection, Pharynx Normal, TMs Normal Neck: Full Range of Motion, Non-Tender, Normal, Normal Inspection Respiratory: Chest Non-Tender, Lungs Clear, No Accessory Muscle Use, No Respiratory Distress, Normal Breath Sounds Cardiovascular: No Edema, No JVD, No Murmur, No Gallop, Normal Peripheral Pulses, Regular Rate/Rhythm Breast Exam: Deferred Gastrointestinal: No Organomegaly, Non Tender, No Pulsatile Mass, Normal Bowel Sounds, Soft Genitalia: Deferred Pelvic: Deferred Rectal: Deferred Extremities: No calf tenderness, Normal capillary refill, Normal inspection, Normal range of motion, Non-tender, No pedal edema Musculoskeletal : Apperance: Normal Neurologic: Alert, account developer II-XII nml as Tested, No Motor Deficits, Normal Affect, Normal Mood, No Sensory Deficits Cerebellar Function: Normal Reflexes: Normal Skin: Dry, Normal Color, Warm Lymphatic: No Adenopathy EKG EKG : Pulse Rate (adult): 61 Cardiac Rhythm: NSR Comments No STEMI Was a procedure done? Was a procedure done?: No Differential Diagnosis (SZ) General Weakness: Dehydration, Electrolyte imbalance, Vertigo: central, Vertigo: peripheral X-Ray, Labs, Meds, VS Vital Signs Date Time Temp Pulse Resp B/P (MAP) Pulse Ox O2 Delivery O2 Flow Rate FiO2 06/15/25 11:08 63 17 98 Room Air* 0 21 06/15/25 11:06 98.0 63 17 150/98 (115) 98 98.0 06/15/25 08:49 69 17 129/98 (108) 98 06/15/25 08:49 69 17 98 Room Air 06/15/25 08:25 61 06/15/25 08:15 97.6 66 18 130/90 100 97.6 Lab Test 06/15/25 08:30 Range/Units POC Glucose 87 70-106 mg/dl X-Ray, Labs, Meds, VS Comment 25-year-old male here today with the complaints of dizziness. Vital signs stable, afebrile. Physical exam without any acute findings. EKG without evidence of AV block, Brugada, prolonged QTC, delta waves, epsilon waves, nor any other evidence of ischemia. After informing the patient of the overall unremarkable EKG, the patient stated that they wanted to be discharged as they were feeling significantly improved. I encouraged good oral hydration and follow up with the primary care provider within 2-3 days for re-evaluation. Return precautions discussed. Patient was discharged in stable condition am bulating with a steady gait in no distress. Time of 1ST Reevaluation: 10:15 Reevaluation 1ST: Improved Patient Education/Counseling: Diagnosis, Treatment Family Education/Counseling: No Family Present Departure 1 Departure Time of Disposition: 19:49 Impression: Primary Impression: Dehydration Additional Impressions: Dizzy History of epilepsy Disposition: HOME / SELF CARE / HOMELESS Condition: Other Critical Care Note Critical Care Time?: No Stability Stability form required: No Heart Score Heart Score: Heart Score Response (Comments) Value History N/A 0 EKG N/A 0 Age N/A 0 Risk Factors N/A 0 Troponin N/A 0 Total 0 I personally scribed for RAOUL CAMPOS MD ([email or web address]) on 06/15/25 at 10:09. Electronically submitted by Natalia Griffin ([email or web address]). RAOUL CAMPOS MD Jun 15, 2025 10:09
[2025-06-15 11:06] VITALS: BP 150/98; TEMP 98
[2025-06-15 11:08] VITALS: PULSE 63; RESP 17; O2SAT 98
[2025-06-15 19:49] VITALS: PULSE 61
== END 2025-06-15 11:10 | disposition home or self-care (01) ==
LOC: ER 08:12
DX: E86.0 Dehydration (principal); R42 Dizziness and giddiness; G40.909 Epilepsy, unspecified, not intractable, without status epilepticus
CPT/HCPCS: 82947; 82962; 93005